=== PATIENT | female | born 1970 | race Caucasian/White ===

== ENCOUNTER 2019-06-10 10:08 | Emergency (ER) | payer SELFPAY ==
[2019-06-10] MEDS ORDERED: LORazepam TAB(*) 1 MG PO ONE (10:30)
[2019-06-10] MEDS ORDERED: NS 0.9% 1000 ML** 1,000 ML IV ONE (10:30)
--- NOTE | 2019-06-10 10:41 | ED ---
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 She notes that she has flu-like symptoms and ingested about 68 mls of Robitussin maximum strength to alleviate them. She began feeling unwell afterwards and immediately came to the ED. She rates her current pain severity an 8/10. She also reports dizziness, anxious feeling, increased heart rate, nausea, body aches, rhinnorhea, and sore throat. She does not smoke or drink EtOH. - History Of Current Complaint Chief Complaint: EDDizziness Stated Complaint: POSS OVERDOSE ON BENEDRYL PER PT Time Seen by Provider: 06/10/19 10:22 Hx Obtained From: Patient Onset/Duration: Still Present Timing: Hours Severity Initially: Severe Severity Currently: Severe Character: Dizzy Aggravating Factor(s): Nothing Alleviating Factor(s): Nothing Associated Signs And Symptoms: Positive: Nausea, Other: - pos - dizziness, sore throat, rhinorrhea, and body aches - Allergies/Home Medications Allergies/Adverse Reactions: Allergies Allergy/AdvReac Type Severity Reaction Status Date / Time No Known Allergies Allergy Verified 02/26/15 09:33 PMH/Surg Hx/FS Hx/Imm Hx Endocrine/Hematology History: Reports: Hx Diabetes Cardiovascular History: Reports: Hx Angina, Hx Congenital Heart Disease - Irregularity in "One chamber" per PT, Hx Syncope - Near syncope Respiratory History: Reports: Hx Pneumonia - Several times Denies: Hx Asthma, Hx Chronic Obstructive Pulmonary Disease (COPD) Musculoskeletal History: Reports: Hx Scoliosis Neurological History: Reports: Hx Transient Ischemic Attacks (TIA) Psychiatric History: Reports: Hx Bipolar Disorder - Cancer History Hx Chemotherapy: No Hx Radiation Therapy: No - Surgical History Surgery Procedure, Year, and Place: tubal ligation Hx Anesthesia Reactions: No Infectious Disease History: No Infectious Disease History: Denies: Traveled Outside the [place] in Last 30 Days - Family History Known Family History: Negative: Renal Disease - Social History Alcohol Use: None Substance Use Type: Reports: None Smoking Status (MU): Former Smoker Have You Smoked in the Last Year: No Review of Systems Constitutional: Other - pos - body aches Positive: Sore Throat, Nasal Discharge Cardiovascular: Other - pos - tachycardia Positive: Nausea Neurological: Other - pos - dizziness Positive: Anxious All Other Systems Reviewed And Are Negative: Yes Physical Exam - Summary Physical Exam Summary: VITAL SIGNS: Reviewed. GENERAL: Patient is a well-developed and nourished female who is lying comfortable in the stretcher. Patient is not in any acute respiratory distress. HEAD AND FACE: No signs of trauma. No ecchymosis, hematomas or skull depressions. No sinus tenderness. EYES: PERRLA, EOMI x 2, No injected conjunctiva, no nystagmus. EARS: Hearing grossly intact. Ear canals and tympanic membranes are within normal limits. MOUTH: Oropharynx within normal limits. NECK: Supple, trachea is midline, no adenopathy, no JVD, no carotid bruit, no c- spine tenderness, neck with full ROM. CHEST: Symmetric, no tenderness at palpation. LUNGS: Clear to auscultation bilaterally. No wheezing or crackles. CVS: Tachycardic, S1 and S2 present, no murmurs or gallops appreciated. ABDOMEN: Soft, non-tender. No signs of distention. No rebound, no guarding, and no masses palpated. Bowel sounds are normal. EXTREMITIES: FROM in all major joints, no edema, no cyanosis or clubbing. NEURO: Alert and oriented x 3. No acute neurological deficits. Speech is normal and follows commands. SKIN: Dry and warm. Triage Information Reviewed: Yes Vital Signs On Initial Exam: Initial Vitals Temp Pulse Resp BP Pulse Ox 98.3 F 137 16 164/104 99 06/10/19 10:10 06/10/19 10:10 06/10/19 10:10 06/10/19 10:10 06/10/19 10:10 Vital Signs Reviewed: Yes Procedures - Sedation Patient Received Moderate/Deep Sedation with Procedure: No Diagnostics - Vital Signs Vital Signs Temp Pulse Resp BP Pulse Ox 06/10/19 10:10 98.3 F 137 16 164/104 99 - Laboratory Result Diagrams: 06/10/19 10:57 06/10/19 10:57 Lab Statement: Any lab studies that have been ordered have been reviewed, and results considered in the medical decision making process. - Radiology CXR Radiology Interpretation Completed By: Radiologist Summary of Radiographic Findings: IMPRESSION: NO ACTIVE CARDIOPULMONARY DISEASE IS NOTED. ED Physician has reviewed this report. - EKG 1016 Cardiac Rate: Tachycardia EKG Rhythm: Sinus Tachycardia - 123 bpm Summary of EKG Findings: EKG at 1016 reveals Sinus Tachycardia @ [address] elevations. 1054 Cardiac Rate: Tachycardia EKG Rhythm: Sinus Tachycardia - 102 bpm Summary of EKG Findings: EKG at 1054 reveals Sinus Tachycardia @ [address] Elevations. 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 She notes that she has flu-like symptoms and ingested about 68 mls of Robitussin maximum strength to alleviate them. She began feeling unwell afterwards and immediately came to the ED. She rates her current pain severity an 8/10. She also reports dizziness, anxious feeling, increased heart rate, nausea, body aches, rhinnorhea, and sore throat. She does not smoke or drink EtOH. Blood test results without any significant abnormality except for slight anemia, glucose 110, urinalysis is negative for UTI. Urine toxicology is negative. We spoke with poison control and they recommended to treat symptoms with IV fluids and benzodiazepines anesthetic. Patient has not exhibited daily dose of Tylenol. At this point the patient is hemodynamically stable. Patient has no other symptoms. Therefore the patient will be discharged home with follow-up with primary care physician. I discussed all the findings and test results with the patient. Patient was instructed to return to the emergency room immediately if any of the symptoms return worsens. Plan of care was discussed with the patient and understands and agrees. All questions were answered at patient satisfaction. There were no further complaints or concerns. Lung exam before discharge: CTA B/L. Good air exchange. No wheezing or crackles heard. CVS: S1 and S2 present. No murmurs appreciated. Patient is alert and oriented x 3. Patient is hemodynamically stable. Patient will be discharged home with follow up PCP in the next 2-3 days - Diagnoses Provider Diagnoses: Accidental overdose Discharge ED - Sign-Out/Discharge Documenting (check all that apply): Patient Departure - discharge - Discharge Plan Condition: Stable Disposition: HOME Referrals: Alexandria Briggs PA [Physician Train Dispatcher] - 3 Days Additional Instructions: Please follow up with your primary care provider within 3 days. Please return to the ED for any new or worsening symptoms. - Billing Disposition and Condition Condition: STABLE Disposition: Home - Attestation Statements Document Initiated by Scribe: Yes Documenting Scribe: Amrik Manjarrez Provider For Whom Scribe is Documenting (Include Credential): Jaron Lutz MD Scribe Attestation: I, Amrik Manjarrez, scribed for Jaron Lutz MD on 06/13/19 at 0712. Scribe Documentation Reviewed: Yes Provider Attestation: The documentation as recorded by the scribe, Amrik Manjarrez accurately reflects the service I personally performed and the decisions made by me, Jaron Lutz MD Status of Scribe Document: Viewed
[2019-06-10 11:03] LABS: ABS Monocytes 0.5 10^3/ul (0-0.8); ABS Neutrophils 7.3 10^3/ul (1.5-7.7); Eosinophil % 0.6 %; Hematocrit 26 % (35-47); Hemoglobin 8.2 g/dL (12.0-16.0); Lymphocyte % 10.9 %; Mean Corpuscular HGB Conc 31 g/dL (31-36); Mean Corpuscular Hemoglobin 21 pg (27-31); Mean Corpuscular Volume 67 fL (80-97); Mean Platelet Volume 6.8 fL (7.4-10.4); Platelet Count 406 10^3/uL (150-450); Red Blood Count 3.96 10^6 /uL (3.70-4.87); Red Cell Distribution Width 17 % (10-15); White Blood Count 8.8 10^3/uL (3.5-10.8)
[2019-06-10 11:19] LABS: ALT 10 U/L (7-52); AST 14 U/L (13-39); Albumin 3.9 g/dL (3.2-5.2); Albumin/Globulin Ratio 1.4 (1-3); Alkaline Phosphatase 68 U/L (34-104); Anion Gap 6 mmol/L (2-11); BUN/Creatinine Ratio 21.4 (8-20); Blood Urea Nitrogen 12 mg/dL (6-24); CO2 Carbon Dioxide 26 mmol/L (22-32); Calcium 8.7 mg/dL (8.6-10.3); Chloride 107 mmol/L (101-111); Creatine Kinase 51 U/L (10-223); EGFR African American 139.8 (>60); EGFR Non-African American 115.5 (>60); Globulin 2.7 g/dL (2-4); Glucose 110 mg/dL (70-100); Potassium 3.7 mmol/L (3.5-5.0); Sodium 139 mmol/L (135-145); Total Protein 6.6 g/dL (6.4-8.9)
[2019-06-10 11:25] LABS: HCG Pregnancy 0.68 mIU/mL
[2019-06-10 11:26] LABS: Microcytosis 3+
[2019-06-10 11:27] LABS: Polychromasia 1+
[2019-06-10 11:49] LABS: Acetaminophen < 15 mcg/mL; Alcohol < 10 mg/dL (<10); Salicylate < 2.50 mg/dL (<30)
[2019-06-10 12:04] LABS: TSH (Thyroid Stimulating Horm) 1.61 mcIU/mL (0.34-5.60)
[2019-06-10 12:12] LABS: Urine Appearance Clear; Urine Bilirubin Negative (Negative); Urine Blood Negative (Negative); Urine Color Straw; Urine Glucose Negative (Negative); Urine Ketones Negative (Negative); Urine Nitrite Negative (Negative); Urine Protein Negative (Negative); Urine Specific Gravity 1.006 (1.010-1.030); Urine Urobilinogen Negative (Negative)
[2019-06-10 12:33] LABS: Urine Benzodiazepine Screen None Detected (None Detect); Urine Opiates Screen None Detected (None Detect)
[2019-06-10 13:54] VITALS: BP 132/80
== END 2019-06-10 13:44 | disposition home or self-care (01) ==
LOC: ED 10:08
DX: T48.3X1A Poisoning by antitussives, accidental (unintentional), initial encounter (principal); Y92.9 Unspecified place or not applicable; E11.9 Type 2 diabetes mellitus without complications; Q24.9 Congenital malformation of heart, unspecified; F31.9 Bipolar disorder, unspecified; Z86.73 Personal history of transient ischemic attack (TIA), and cerebral infarction without residual deficits; Z87.891 Personal history of nicotine dependence; Z98.51 Tubal ligation status
CPT/HCPCS: 36415; 71045; 80053; 80307; 80320; 80329; 81003; 82550; 83605; 84443; 84702; 85025; 85060; 93005; 96360; 96361; 99282; G0480